=== PATIENT | female | born 1995 | race Caucasian/White ===

== ENCOUNTER → 2016-07-04 | Outpatient (REF) | payer OTHER | LOC: M SFHCLERA 15:33 | PROVIDERS: ATTEND Nurse Practitioner Family | DX: J02.9 Acute pharyngitis, unspecified (principal) ==

== ENCOUNTER → 2016-07-15 | Outpatient (REF) | payer OTHER ==
[2016-07-15 18:44] LABS: ALBUMIN 3.5 GM/DL (3.2-5.2); ALBUMIN/GLOBULIN RATIO 1.06 (1.00-1.93); ALKALINE PHOSPHATASE 71 U/L (45-117); ALT/SGPT 15 U/L (12-78); ANION GAP 8 MEQ/L (8-16); AST/SGOT 9 U/L (15-37); BILIRUBIN,TOTAL 0.2 MG/DL (0.2-1.0); BLOOD UREA NITROGEN 11 MG/DL (7-18); CARBON DIOXIDE LEVEL 27 MEQ/L (21-32); CHLORIDE LEVEL 107 MEQ/L (98-107); CREATININE FOR GFR 0.65 MG/DL (0.55-1.02); GLUCOSE, FASTING 72 MG/DL (70-105); HCG, SERUM QUANTITATIVE 22643 MIU/ML; SODIUM LEVEL 142 MEQ/L (136-145); TOTAL PROTEIN 6.8 GM/DL (6.4-8.2)
[2016-07-15 18:45] LABS: POTASSIUM SERUM 5.2 MEQ/L (3.5-5.1)
[2016-07-15 19:28] LABS: BASO % 0.3 % (0.0-1.0); EOS # 0.1 K/mm3 (0.0-0.50); EOS % 0.4 % (0.0-3.0); LARGE UNSTAINED CELL # 0.1 K/mm3 (0.0-0.4); LARGE UNSTAINED CELL % 0.8 % (0.0-4.0); LYMPH # 2.6 K/mm3 (1.5-6.5); LYMPH % 19.8 % (24.0-44.0); MEAN CORPUSCULAR HEMOGLOBIN 30.4 pg (27.0-33.0); MEAN CORPUSCULAR HGB CONC 32.7 g/dl (32.0-36.5); MEAN CORPUSCULAR VOLUME 92.9 fl (80.0-96.0); MONO # 0.4 K/mm3 (0.0-0.8); MONO % 3.3 % (0.0-5.0); NEUTROPHILS # 9.8 K/mm3 (1.8-7.7); NEUTROPHILS % 75.4 % (36.0-66.0); PLATELET COUNT, AUTOMATED 262 k/mm3 (150-450); RED CELL DISTRIBUTION WIDTH 12.5 % (11.5-14.5); WHITE BLOOD COUNT 12.9 K/mm3 (4.0-10.0)
[2016-07-19 08:06] LABS: CYTOMEGALOVIRUS IgG ANTIBODY <0.60 U/mL (0.00-0.59)
== END ==
LOC: M SFHCLERA 15:58
PROVIDERS: ATTEND Nurse Practitioner Family
DX: R10.12 Left upper quadrant pain (principal)

== ENCOUNTER → 2016-07-15 | Outpatient (CLI) | payer BC, OTHER ==
--- NOTE | 2016-07-15 16:44 | REP ---
Left upper quadrant sonography: History: Left upper quadrant pain. Question organomegaly. Findings: Scanning through the left upper quadrant of the abdomen demonstrates a normal sized homogeneous spleen with greatest dimension of 9.8 cm. There is no evidence of ascites. No mass or cyst is seen in the left upper quadrant. No left renal abnormality is seen. Left kidney measures 10.5 x 5.4 x 4.5 cm. Impression: Normal left upper quadrant sonography. Signed by Joesph Thompson MD 07/15/2016 04:59 P
== END ==
LOC: M LRY 14:56
PROVIDERS: ATTEND Nurse Practitioner Family
DX: R10.12 Left upper quadrant pain (principal); R07.81 Pleurodynia

== ENCOUNTER → 2016-08-29 | Outpatient (CLI) | payer BC, OTHER ==
--- NOTE | 2016-08-30 08:37 | REP ---
OBSTETRIC SONOGRAPHY: HISTORY: Supervision of , size/date discrepancy. FINDINGS: Scanning through the gravid uterus demonstrates a viable single intrauterine gestation in a breech lie. motion is observed and heart rate is recorded at 147 beats per minute. A posterior grade 0 placenta is seen without evidence of previa or abruption. Amniotic fluid is subjectively normal. Closed cervical length is 3.5 cm, viewed transabdominally. No extrauterine abnormality is observed. No anomaly is seen. The following anatomic structures are identified and felt to be sonographically unremarkable: cranium, choroid plexus, cavum, cerebellum and posterior fossa, face and profile, lungs, four-chamber heart with left and right ventricular outflow tract views, diaphragm, left-sided stomach, abdominal wall cord insertion, three-vessel umbilical cord, kidneys and bladder, spine, upper and lower extremities. Biometry Chart: BPD 5.1 cm = 21 weeks 3 days HC 19.5 cm = 21 weeks 5 days AC 17.0 cm = 22 weeks 0 days FL 3.5 cm = 21 weeks 0 days HL 3.5 cm = 22 weeks 0 days CD 2.3 cm = 21 weeks 1 day HC/AC ratio normal 1.15. Cephalic index normal 0.72. Estimated weight 433 grams, 0 pounds 15 ounces, 58th percentile for 21 weeks 2 days. IMPRESSION: Viable single intrauterine gestation at 21 weeks 2 days by today's composite sonographic criteria. MANA by today's sonography January 07, 2017. anatomic survey is felt to be complete. Signed by Joesph Thompson MD 08/30/2016 01:07 P
== END ==
LOC: M SMT 14:45
PROVIDERS: ATTEND Advanced Practice Midwife
DX: O26.842 Uterine size-date discrepancy, second trimester (principal)

== ENCOUNTER → 2016-10-13 | Outpatient (CLI) | payer BC, OTHER ==
[2016-10-13 18:06] LABS: MEAN CORPUSCULAR HEMOGLOBIN 32.1 pg (27.0-33.0); MEAN CORPUSCULAR HGB CONC 34.7 g/dl (32.0-36.5); MEAN CORPUSCULAR VOLUME 92.7 fl (80.0-96.0); RED CELL DISTRIBUTION WIDTH 12.1 % (11.5-14.5); WHITE BLOOD COUNT 9.6 K/mm3 (4.0-10.0)
== END ==
LOC: M SMT 13:30
PROVIDERS: ATTEND Advanced Practice Midwife
DX: Z34.82 Encounter for supervision of other normal pregnancy, second trimester (principal)

== ENCOUNTER → 2016-12-10 | Outpatient (REF) | payer OTHER | LOC: M SFHCLERA 13:31 | PROVIDERS: ATTEND Physician Assistant | DX: J02.0 Streptococcal pharyngitis (principal) ==

== ENCOUNTER → 2016-12-14 | Outpatient (REF) | payer OTHER ==
[~2016-12-14] MED LIST: ACET50TA PO; IBUP-1114 PO; PRENTAB9 PO
== END ==
LOC: M LAB REF 17:25
PROVIDERS: ATTEND Advanced Practice Midwife
DX: Z34.83 Encounter for supervision of other normal pregnancy, third trimester (principal)

== ENCOUNTER 2017-01-06 07:02 | Inpatient (IN) | payer BC, OTHER, MEDICAID ==
[2017-01-06] VITALS (16 sets, daily range): BP systolic 115–152; BP diastolic 56–98
[~2017-01-06] VITALS: Ht 172.7 cm; Wt 90.0 kg
[2017-01-06] MEDS ORDERED: PRENTAB9 PO (07:29)
[2017-01-06] MEDS ORDERED: PENICILLIN G POTASSIUM IV 5 MU in D5W MINI-BAG PLUS 100 ML IV STA (07:46)
[2017-01-06 08:16] LABS: MEAN CORPUSCULAR HEMOGLOBIN 31.9 pg (27.0-33.0); MEAN CORPUSCULAR HGB CONC 35.6 g/dl (32.0-36.5); MEAN CORPUSCULAR VOLUME 89.5 fl (80.0-96.0); RED CELL DISTRIBUTION WIDTH 12.6 % (11.5-14.5)
[2017-01-06] MEDS ORDERED: FENTANYL 2MCG/ML ROPIVACAINE 0.2% IN 0.9% NACL 200ML IVBAG As Ordered ONE (09:38)
[2017-01-06] MEDS ORDERED: TERBUTALINE SULFATE 1 MG/ML VIAL (J3105) As Ordered ONE (10:20)
[2017-01-06] MEDS ORDERED: TERBUTALINE SULFATE 1 MG/ML VIAL (J3105) SC ONE (11:15)
[2017-01-06] MEDS ORDERED: PENICILLIN G POTASSIUM IV 2.5 MU in D5W 100 ML IV SCH (14:00)
[2017-01-06] MEDS ORDERED: OXYTOCIN 30 UNITS IN 0.9% NaCl 500ML IV BAG (J2590) As Ordered ONE (15:36)
[2017-01-06] MEDS ORDERED: OXYTOCIN DRIP 30 UNITS in APPROPRIATE DILUENT 1 EA IV ONE (17:45)
[2017-01-06] MEDS ORDERED: MEASLES,MUMPS,RUBELLA VACCINE INJ (MMR-II) (90707) SC SCH (17:45)
[2017-01-06] MEDS ORDERED: RHOGAM 300 MCG (1500 IU) INJ (J2790) IM SCH (17:45)
[2017-01-06] MEDS ORDERED: METHYLERGONOVINE MALEATE 0.2 MG TAB PO PRN (17:45)
[2017-01-06] MEDS ORDERED: DOCUSATE SODIUM 100 MG CAP PO PRN (17:45)
[2017-01-06] MEDS ORDERED: IBUPROFEN 800 MG TAB PO PRN (17:45)
[2017-01-06] MEDS ORDERED: DIBUCAINE 1% OINTMENT 30GM TOP PRN (17:45)
[2017-01-06] MEDS ORDERED: ONDANSETRON 4MG/2ML VIAL (J2405) IV PRN (17:45)
[2017-01-06] MEDS ORDERED: ACETAMINOPHEN 500 MG TAB PO PRN (17:45)
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
[2017-01-07 05:48] VITALS: BP 140/82
[2017-01-07] MEDS: PRENATAL VITAMINS CHEWABLE TABLET PO SCH (09:00)
[2017-01-07 18:32] VITALS: BP 129/75
--- NOTE | 2017-01-08 03:43 | DN ---
DATE OF SERVICE: 01/06/2017 PREDELIVERY DIAGNOSES: 1. 39+ week gestation. 2. Labor. POSTDELIVERY DIAGNOSIS: Delivered. PROCEDURE: Spontaneous vaginal delivery. DEPOSITING MACHINE OPERATOR: Eros Dailey MD. ANESTHESIA: Epidural. ESTIMATED BLOOD LOSS: 300 mL. FINDINGS: 7 pound 12 ounce female infant, scores 9 and 9. DELIVERY SUMMARY: After a short second stage, the patient had spontaneous delivery of a 7 pound 12 ounce female , scores 9 and 9 under epidural anesthesia. There was no nuchal cord. The shoulders delivered with ease. The infant cried spontaneously and was handed to the mother. The cord was doubly clamped and cut. The placenta delivered spontaneously and appeared to be intact. Small first-degree vaginal laceration was noted, but did not require repair. The patient received intravenous (IV) Pitocin. Sponge counts were correct.
[2017-01-08 05:53] VITALS: BP 133/79
[2017-01-08] MEDS: PRENATAL VITAMINS CHEWABLE TABLET PO SCH (09:46)
[2017-01-08] MEDS ORDERED: IBUP-1114 PO (10:58)
[2017-01-08] MEDS ORDERED: ACET50TA PO (10:58)
== END 2017-01-08 17:40 | disposition home or self-care (01) | DRG 560 ==
LOC: M LDO 07:02 → M LDI 07:44 → M OBS 19:15
PROVIDERS: ADMIT Specialist; ATTEND Specialist
PROC: 10E0XZZ Delivery of Products of Conception, External Approach (ICD-10-PCS; principal; 2017-01-06)
DX: O70.0 First degree perineal laceration during delivery (principal); Z87.891 Personal history of nicotine dependence; Z37.0 Single live birth; Z3A.39 39 weeks gestation of pregnancy

== ENCOUNTER 2017-09-03 17:42 | Emergency (ER) | payer OTHER, BC, MEDICAID | END 2017-09-03 19:57 | disposition home or self-care (01) | LOC: M ED 17:42 | DX: S16.1XXA Strain of muscle, fascia and tendon at neck level, initial encounter (principal); T14.8XXA Other injury of unspecified body region, initial encounter; V49.49XA Driver injured in collision with other motor vehicles in traffic accident, initial encounter; Y92.410 Unspecified street and highway as the place of occurrence of the external cause | CPT/HCPCS: 73564 ==

== ENCOUNTER 2018-02-27 12:37 | Emergency (ER) | payer BC, OTHER, MEDICAID ==
[2018-02-27 13:25] LABS: HEMATOCRIT 37.3 % (36.0-47.0); HEMOGLOBIN 12.6 g/dl (12.0-15.5); MEAN CORPUSCULAR HGB CONC 33.8 g/dl (32.0-36.5); MEAN CORPUSCULAR VOLUME 91.9 fl (80.0-96.0); PLATELET COUNT, AUTOMATED 194 10^3/uL (150-450); RED BLOOD COUNT 4.06 10^6/uL (4.00-5.40); RED CELL DISTRIBUTION WIDTH 12.5 % (11.5-14.5); WHITE BLOOD COUNT 8.1 10^3/uL (4.0-10.0)
[2018-02-27] MEDS: NS 1,000 ML IV (13:30)
[2018-02-27 13:33] LABS: KETONE, URINE AUTO RFX TRACE mg/dL (NEGATIVE); MUCUS, URINE RFX SMALL (NEGATIVE); NITRITE, URINE AUTO RFX NEGATIVE (NEGATIVE); RBC, URINE AUTO RFX 1 /HPF (0-3); SPECIFIC GRAVITY UR AUTO RFX 1.024 (1.002-1.035); SQUAM EPITHELIAL CELL UR AURFX 12 /HPF (0-6); WBC, URINE AUTO RFX 3 /HPF (0-3)
[2018-02-27 13:34] LABS: LEUKOCYTE ESTERASE UR AUTO RFX TRACE (NEGATIVE)
[2018-02-27 13:58] LABS: ANION GAP 5 MEQ/L (8-16); BLOOD UREA NITROGEN 12 MG/DL (7-18); CARBON DIOXIDE LEVEL 28 MEQ/L (21-32); CHLORIDE LEVEL 106 MEQ/L (98-107); CREATININE FOR GFR 0.69 MG/DL (0.55-1.30); GLOMERULAR FILTRATION RATE > 60.0 (>60); GLUCOSE, FASTING 97 MG/DL (70-100); POTASSIUM SERUM 4.9 MEQ/L (3.5-5.1); SODIUM LEVEL 139 MEQ/L (136-145)
== END 2018-02-27 14:53 | disposition home or self-care (01) ==
LOC: M ED 12:37
DX: O99.89 Other specified diseases and conditions complicating pregnancy, childbirth and the puerperium (principal); R55 Syncope and collapse; R82.71 Bacteriuria; O99.511 Diseases of the respiratory system complicating pregnancy, first trimester; J45.909 Unspecified asthma, uncomplicated; Z87.891 Personal history of nicotine dependence; Z3A.12 12 weeks gestation of pregnancy
CPT/HCPCS: 93005

== ENCOUNTER → 2018-03-12 | Outpatient (CLI) | payer BC, OTHER ==
[2018-03-12 14:17] LABS: BASO % 0.3 % (0.0-1.0); EOS # 0.1 10^3/uL (0.0-0.50); EOS % 0.6 % (0.0-3.0); HEMATOCRIT 34.8 % (36.0-47.0); HEMOGLOBIN 11.6 g/dl (12.0-15.5); IMMATURE GRANULOCYTE % 0.3 % (0-3.0); LYMPH # 1.9 10^3/uL (1.5-6.5); LYMPH % 21.9 % (24.0-44.0); MEAN CORPUSCULAR HEMOGLOBIN 30.3 pg (27.0-33.0); MEAN CORPUSCULAR HGB CONC 33.3 g/dl (32.0-36.5); MEAN CORPUSCULAR VOLUME 90.9 fl (80.0-96.0); MONO # 0.5 10^3/uL (0.0-0.8); MONO % 5.5 % (0.0-5.0); NEUTROPHILS # 6.2 10^3/uL (1.8-7.7); NEUTROPHILS % 71.4 % (36.0-66.0); PLATELET COUNT, AUTOMATED 214 10^3/uL (150-450); RED BLOOD COUNT 3.83 10^6/uL (4.00-5.40); RED CELL DISTRIBUTION WIDTH 12.7 % (11.5-14.5); WHITE BLOOD COUNT 8.8 10^3/uL (4.0-10.0)
[2018-03-12 15:07] LABS: HBsAg Prenatal NEGATIVE (NEGATIVE); HIV 1&2 SCREEN CENTAUR NEGATIVE (NEGATIVE); RUBELLA IgG QUALITATIVE IMMUNE (IMMUNE)
[2018-03-12 15:07] LABS: HEPATITIS C VIRUS ABY INDEX 0.1 INDEX (<0.8)
[2018-03-12 15:16] LABS: CHLAMYDIA DNA AMPLIFICATION NEGATIVE (NEGATIVE); GC DNA AMPLIFICATION NEGATIVE (NEGATIVE)
== END ==
LOC: M SMT 10:41
DX: Z34.81 Encounter for supervision of other normal pregnancy, first trimester (principal); Z3A.08 8 weeks gestation of pregnancy
CPT/HCPCS: 86762

== ENCOUNTER → 2018-04-09 | Outpatient (CLI) | payer BC, OTHER, MEDICAID | LOC: M LRY 14:05 | DX: Z34.82 Encounter for supervision of other normal pregnancy, second trimester (principal); Z3A.18 18 weeks gestation of pregnancy | CPT/HCPCS: 76811 ==

== ENCOUNTER → 2018-04-26 | Outpatient (CLI) | payer BC, OTHER | LOC: M SMT 13:26 | DX: Z36.89 Encounter for other specified antenatal screening (principal); Z3A.20 20 weeks gestation of pregnancy | CPT/HCPCS: 76816 ==

== ENCOUNTER → 2018-05-28 | Outpatient (CLI) | payer BC, OTHER ==
[2018-05-28 18:32] LABS: ALT/SGPT 10 U/L (12-78); AST/SGOT 9 U/L (7-37); BILIRUBIN,TOTAL 0.2 MG/DL (0.2-1.0); CREATININE FOR GFR 0.65 MG/DL (0.55-1.30); GLOMERULAR FILTRATION RATE > 60.0 (>60); LDH LACTATE DEHYDROGENASE 118 U/L (84-246); URIC ACID 4.4 MG/DL (2.6-6.0)
[2018-05-28 18:33] LABS: HEMATOCRIT 37.3 % (36.0-47.0); HEMOGLOBIN 12.3 g/dl (12.0-15.5); MEAN CORPUSCULAR HEMOGLOBIN 31.1 pg (27.0-33.0); MEAN CORPUSCULAR VOLUME 94.4 fl (80.0-96.0); PLATELET COUNT, AUTOMATED 207 10^3/uL (150-450); RED BLOOD COUNT 3.95 10^6/uL (4.00-5.40); RED CELL DISTRIBUTION WIDTH 12.9 % (11.5-14.5)
[2018-05-28 19:11] LABS: TOTAL PROTEIN,RANDOM URINE 27.8 MG/DL (0.0-12.0)
== END ==
LOC: M SMT 11:39
DX: Z36.89 Encounter for other specified antenatal screening (principal)
CPT/HCPCS: 84460

== ENCOUNTER → 2018-07-09 | Outpatient (CLI) | payer BC, OTHER ==
[~2018-07-09] MED LIST changes: -ACET50TA PO; +CYCL10TA PO; +IBUP-1022 PO; +KEFL500C17 PO; +MAPA500T2 PO
[2018-07-09 17:31] LABS: HEMATOCRIT 35.9 % (36.0-47.0); HEMOGLOBIN 12.2 g/dl (12.0-15.5); MEAN CORPUSCULAR HEMOGLOBIN 31.4 pg (27.0-33.0); MEAN CORPUSCULAR VOLUME 92.5 fl (80.0-96.0); PLATELET COUNT, AUTOMATED 200 10^3/uL (150-450); RED BLOOD COUNT 3.88 10^6/uL (4.00-5.40); WHITE BLOOD COUNT 11.5 10^3/uL (4.0-10.0)
== END ==
LOC: M SMT 13:32
PROVIDERS: ATTEND Advanced Practice Midwife
DX: Z34.83 Encounter for supervision of other normal pregnancy, third trimester (principal)

== ENCOUNTER → 2018-07-30 | Outpatient (CLI) | payer BC, OTHER | LOC: M LAB 07:38 | PROVIDERS: ATTEND Advanced Practice Midwife | DX: Z34.83 Encounter for supervision of other normal pregnancy, third trimester (principal) ==

== ENCOUNTER → 2018-08-07 | Outpatient (REF) | payer OTHER | LOC: M LAB REF 17:07 | PROVIDERS: ATTEND Advanced Practice Midwife | DX: O13.3 Gestational [pregnancy-induced] hypertension without significant proteinuria, third trimester (principal); Z3A.00 Weeks of gestation of pregnancy not specified ==

== ENCOUNTER → 2018-08-09 | Outpatient (CLI) | payer BC, OTHER ==
--- NOTE | 2018-08-10 09:18 | REP ---
Clinical: Growth evaluation. Comparison: 04/26/2018 . Findings: Examination demonstrates a single live intrauterine in cephalic presentation. motion is identified by technologist. Placenta is noted fundal and grade grade II without evidence for placenta previa or abruption. Amniotic fluid volume is normal. Cervix measures 2.9 cm in length and appears closed. No evidence for nuchal cord. Gestational age by LMP 35 weeks 4 day with MANA 09/09/2018 . Gestational age by current measurements 35 weeks 3 days with MANA 09/10/2018 . FHR equals 122 beats per minute. BPD 8.8 cm 35 weeks 4 days HC 32.5 cm 36 weeks 6 days AC 38.9 cm 34 weeks 6 days FL 6.8 cm 35 weeks 0 days HL 6.0 cm 34 weeks 5 days HC/AC ratio 1.05 Estimated weight 2605 grams ( 42nd percentile). Amniotic fluid index: 15.2 cm Umbilical cord SD ratio: 2.92 Impression: Single live intrauterine in cephalic presentation demonstrating appropriate interval growth. Electronically Signed by Toño May MD 08/10/2018 09:09 A
== END ==
LOC: M RAD 11:17
PROVIDERS: ATTEND Advanced Practice Midwife
DX: O13.3 Gestational [pregnancy-induced] hypertension without significant proteinuria, third trimester (principal)

== ENCOUNTER 2018-08-19 06:09 | Inpatient (IN) | payer BC, OTHER ==
[2018-08-19] VITALS (20 sets, daily range): BP systolic 101–140; BP diastolic 59–102
[~2018-08-19] VITALS: Ht 172.7 cm; Wt 101.8 kg
[2018-08-19 07:35] LABS: HEMATOCRIT 36.5 % (36.0-47.0); HEMOGLOBIN 12.1 g/dl (12.0-15.5); MEAN CORPUSCULAR HEMOGLOBIN 30.1 pg (27.0-33.0); MEAN CORPUSCULAR HGB CONC 33.2 g/dl (32.0-36.5); MEAN CORPUSCULAR VOLUME 90.8 fl (80.0-96.0); PLATELET COUNT, AUTOMATED 237 10^3/uL (150-450); RED BLOOD COUNT 4.02 10^6/uL (4.00-5.40); WHITE BLOOD COUNT 11.4 10^3/uL (4.0-10.0)
[2018-08-19 07:41] LABS: ALT/SGPT 11 U/L (12-78); BILIRUBIN,TOTAL 0.3 MG/DL (0.2-1.0); CREATININE FOR GFR 0.76 MG/DL (0.55-1.30); GLOMERULAR FILTRATION RATE > 60.0 (>60); LDH LACTATE DEHYDROGENASE 100 U/L (84-246); URIC ACID 6.5 MG/DL (2.6-6.0)
[2018-08-19] MEDS: miSOPROStol 50 MCG 1/2 TAB (S0191) PO SCH ×2 (07:44→11:45)
--- NOTE | 2018-08-19 11:03 | HPE ---
DATE OF ADMISSION: 08/19/2018 REASON FOR ADMISSION: Induction of labor. HISTORY OF PRESENT ILLNESS: This patient is a 22-year-old, 2, para 1, who presents at 37 weeks 4 days estimated gestational age by a last menstrual period confirmed by a first trimester ultrasound here for induction of labor for gestational hypertension. Her course again has been remarkable for gestational hypertension. She initiated care in the first trimester and has been appropriate throughout the . PAST MEDICAL HISTORY: None. PAST SURGICAL HISTORY: She has had tonsillectomy and adenoidectomy. OBSTETRICAL HISTORY: She is 2, para 1. She has had 1 term vaginal delivery. She is proven 6 pounds and 12 ounces. MEDICATIONS: vitamins. ALLERGIES: She has no known drug allergies. SOCIAL HISTORY: Denies any alcohol, tobacco or drug use during the . PHYSICAL EXAMINATION: Vital signs are stable. She is afebrile. She has a Category 1 rate tracing. General Appearance: Well appearing in no acute distress. Her lungs are clear to auscultation bilaterally. Cardiovascular: Heart regular rate and rhythm. Abdomen is gravid, nontender. Estimated weight (EFW) 3000 grams. Cervical Exam: Her cervix is long and closed. LABS: Blood type is O+. Antibody screen is negative. Rubella is immune. RPR is nonreactive. Hepatitis surface antigen negative. HIV is negative. Hepatitis C is nonreactive. Chlamydia and gonorrhea screens are negative. She had an elevated 1-hour Glucola with normal 3-hour glucose tolerance test. She is GBS negative. ASSESSMENT: 1. This patient is a 22-year-old, 2, para 1, at 37 and 4 weeks, here for induction of labor for gestational hypertension, currently stable. 2. Reassuring status. PLAN: 1. Admit to Labor delivery. CBC, RPR, type and screen. 2. I discussed medication as well as procedures performed in labor and delivery. We reviewed induction. I also verbally consented her for emergency surgery, blood products and anesthesia. She desires to proceed with induction of labor. Will initiate her induction with oral misoprostol.
[2018-08-19] MEDS: CALCIUM CARBONATE 500 MG CHEW U/D PO PRN ×2 (11:58→21:04)
--- NOTE | 2018-08-19 16:34 | NUR ---
L&D Note: S: Coping well w/ labor pain O: vss, AF cat I tracing cx: /-3, AROM clear A/P: 22yo IOL for GHTN- stable reassuring status -epidural at request -anticipate ANGELICA Sierra MD
[2018-08-19] MEDS ORDERED: FENTANYL 2MCG/ML ROPIVACAINE 0.2% IN 0.9% NACL 100ML IVBAG As Ordered ONE (16:38)
[2018-08-19] MEDS ORDERED: OXYTOCIN 30 UNITS IN 0.9% NaCl 500ML IV BAG (J2590) As Ordered ONE (18:41)
[2018-08-19] MEDS ORDERED: NALOXONE INJ 0.4 MG/1 ML VIAL (J2310) IV PRN (18:45)
[2018-08-19] MEDS ORDERED: REFRIGERATOR IV KEYS XX PRN (18:45)
[2018-08-19] MEDS ORDERED: EPIDURAL/PCA KEYS XX PRN (18:45)
[2018-08-19] MEDS ORDERED: diphenhydrAMINE INJ 50MG/ML VIAL (J1200) IV PRN (18:45)
[2018-08-19] MEDS ORDERED: EPIDURAL COMMENT XX SCH (18:45)
[2018-08-19] MEDS ORDERED: ONDANSETRON 4MG/2ML VIAL (J2405) IV PRN (18:45)
[2018-08-19] MEDS ORDERED: FENTANYL/ROPIVACAINE/NACL BAG 100 ML EPIDURAL SCH (18:45)
[2018-08-19] MEDS ORDERED: LR 1,000 ML IV SCH (20:46)
[2018-08-19] MEDS ORDERED: OXYTOCIN DRIP 30 UNITS in APPROPRIATE DILUENT 1 EA IV SCH ×2 (21:00→22:57)
[2018-08-19] MEDS ORDERED: RHOGAM 300 MCG (1500 IU) INJ (J2790) IM SCH (23:00)
[2018-08-19] MEDS ORDERED: MEASLES,MUMPS,RUBELLA VACCINE INJ (MMR-II) (90707) SC SCH (23:00)
[2018-08-19] MEDS ORDERED: MOM 30ML SUSPENSION UDC PO PRN (23:00)
[2018-08-19] MEDS ORDERED: ACETAMINOPHEN 500 MG TAB PO PRN (23:00)
[2018-08-19] MEDS ORDERED: METHYLERGONOVINE MALEATE 0.2 MG TAB PO PRN (23:00)
[2018-08-19] MEDS ORDERED: DIBUCAINE 1% OINTMENT 30GM TOP PRN (23:00)
[2018-08-19] MEDS ORDERED: ANUSOL HC CREAM 30GM TOP PRN (23:00)
[2018-08-19] MEDS ORDERED: DOCUSATE SODIUM 100 MG CAP PO PRN (23:00)
[2018-08-20 01:10] VITALS: BP 121/74
[2018-08-20] MEDS: IBUPROFEN 800 MG TAB PO PRN ×2 (02:53→14:53)
--- NOTE | 2018-08-20 07:09 | NUR ---
PPD#1 S: Doing well w/o complaints. +ambulation, +voids, pain well controlled. O: vss, AF gen: well appearing abd: soft,nttp, ff@u-1 ext: neg calf tenderness A/P: PPD#1 s/p - recovering in stable condition -cont routine care -d/c plans for tomorrow Nelli Sierra MD
--- NOTE | 2018-08-20 07:45 | DN ---
DATE OF DELIVERY: 08/19/2018 TIME OF : 2219 GENDER: Male SCORES: 8 and 9. WEIGHT: 6 pounds 11 ounces or 3020 grams. LACERATIONS: None. ESTIMATED BLOOD LOSS: 300 mL. ANESTHESIA: Epidural. COUNTS: Five laparotomy sponges accounted for prior to and after delivery. DELIVERY NOTE: On the August at 2219, Ms. Stevenson, a 22-year-old, 2 now para 2 had a spontaneous vaginal delivery of a live born male infant, scores 8 and 9, weight was 6 pounds 11 ounces or 3020 grams. Head was delivered occipitoanterior (OA) over intact perineum following shoulders and corpus. Infant was handed to the mom with a good cry. Cord was clamped times two and was cut by the father of the baby under my direction. Placenta was then drained delivered grossly intact. A premixed bag of 500 mL of normal saline was then bolused along with uterine massage until uterus firm. On inspection cervix, vagina, and perineum was grossly intact and hemostatic. Mom and baby recovered in stable condition. The couple decided to name their son, Georges.
[2018-08-20] MEDS: PRENATAL VITAMINS CHEWABLE TABLET PO SCH (08:30)
[2018-08-20 18:00] VITALS: BP 123/73
[2018-08-21 00:10] VITALS: BP 119/70
[2018-08-21 06:11] VITALS: BP 110/63
[2018-08-21] MEDS: PRENATAL VITAMINS CHEWABLE TABLET PO SCH (09:10)
[2018-08-21] MEDS ORDERED: MAPA500T2 PO (10:00)
[2018-08-21] MEDS ORDERED: PRENTAB9 PO (10:00)
[2018-08-21] MEDS ORDERED: IBUP200C25 PO (10:00)
== END 2018-08-21 14:05 | disposition home or self-care (01) | DRG 560 ==
LOC: M LDI 06:09 → M OBS 08-20 01:07
PROVIDERS: ADMIT Obstetrics & Gynecology; ATTEND Obstetrics & Gynecology
PROC: 10E0XZZ Delivery of Products of Conception, External Approach (ICD-10-PCS; principal; 2018-08-19)
PROC: 3E0P7GC Introduction of Other Therapeutic Substance into Female Reproductive, Via Natural or Artificial Opening (ICD-10-PCS; 2018-08-19)
DX: O13.4 Gestational [pregnancy-induced] hypertension without significant proteinuria, complicating childbirth (principal); Z3A.37 37 weeks gestation of pregnancy; Z37.0 Single live birth

== ENCOUNTER → 2019-12-16 | Outpatient (CLI) | payer BC, OTHER ==
[~2019-12-16] MED LIST changes: +CYCL-707 PO; -CYCL10TA PO; +IBUP200C25 PO
--- NOTE | 2019-12-16 16:34 | REP ---
Right knee series: Five views. History: Popping sounds. Right knee pain. Findings: Five views of the right knee demonstrate normal bones, joints and soft tissues. No fracture subluxation or joint effusion. No significant change from prior study of April 23, 2014. Impression: Negative right knee radiographs. Electronically Signed by Joesph Thompson MD 12/16/2019 04:25 P
== END ==
LOC: M LRY 15:58
PROVIDERS: ATTEND Nurse Practitioner Family
DX: M25.561 Pain in right knee (principal)

== ENCOUNTER → 2020-08-28 | Outpatient (CLI) | payer BC | LOC: M LABSMTC 09:40 | PROVIDERS: ATTEND Anesthesiology | DX: Z01.812 Encounter for preprocedural laboratory examination (principal); Z20.822 Contact with and (suspected) exposure to COVID-19 ==

== ENCOUNTER 2020-09-02 08:57 | Day surgery (SDC) | payer BC, OTHER ==
[~2020-09-02] VITALS: Ht 172.7 cm; Wt 88.0 kg
[~2020-09-02 08:57] MED LIST changes: +LR 1,000 ML IV ONE; +ceFAZolin SOD 2 GM in IV 1 EA IV ONE
[2020-09-02] MEDS ORDERED: MIDAZOLAM INJ 2MG/2ML VIAL (J2250 PER 1MG) As Ordered ONE (12:42)
[2020-09-02] MEDS ORDERED: ROCURONIUM BROMIDE 50 MG/5 ML VIAL As Ordered ONE (12:42)
[2020-09-02] MEDS ORDERED: propofoL 200 MG/20 ML VIAL As Ordered ONE (12:42)
[2020-09-02] MEDS ORDERED: LIDOCAINE 2% 100MG/5ML SDV (FOR ANES.) As Ordered ONE (12:42)
[2020-09-02] MEDS ORDERED: fentaNYL 100 MCG/2 ML INJECTION (J3010) As Ordered ONE (12:42)
[2020-09-02] MEDS ORDERED: BUPIVACAINE HCL 0.25% 30ML VIAL As Ordered ONE (13:00)
[2020-09-02] MEDS ORDERED: ONDANSETRON 4MG/2ML VIAL As Ordered ONE (13:44)
[2020-09-02] MEDS ORDERED: dexameTHASONE 4 MG/ML 1ML VIAL (J1100 PER 1MG) As Ordered ONE (13:44)
[2020-09-02] MEDS ORDERED: KETOROLAC 60MG 2ML VIAL As Ordered ONE (13:44)
--- NOTE | 2020-09-02 14:20 | ROOPDOC ---
[facility] Report Of Operation Report of Operation DATE OF PROCEDURE: 09/02/20 PREPROCEDURE DIAGNOSES: Right knee lateral meniscus tear and lateral femoral cartilage lesion. POSTPROCEDURE DIAGNOSES: Same. PROCEDURE: Right knee arthroscopy, partial lateral meniscectomy and lateral meniscus repair as well as debridement cartilage lesion lateral femoral condyle 5 x 5 mm. SURGEON: Dr. Marin Villalobos MD LEAK PATCHER: None ANESTHESIA: Gen. anesthetic Dr Alvarez. ESTIMATED BLOOD LOSS: Approximately 20 mL. COMPLICATIONS: None. REMARKS: None. PROCEDURE NOTE: This 24-year-old female had signs and symptoms of lateral knee pain as well as MRI evidence of bucket-handle lateral meniscus tear as well as small osteochondral defect lateral femoral condyle. She wished to proceed with surgery. Marked the right knee and she had no further questions.. DESCRIPTION OF PROCEDURE: Patient was brought to the operating theater. There placed supine on the operating room table. General anesthesia was induced. 2 g of IV Ancef was administered prior to the start of the case. Stress positioner was used to the patient's right side. Tourniquet was applied to the right thigh and appropriately padded. Right lower extremity was prepped and draped in the [facility] sterile fashion allowing over 3 minutes chlorhexidine-based prep solution drying time prior to draping. Preoperative timeout was performed to confirm the site the patient and the surgery. I began by elevating the limb and inflating the tourniquet to 250 mmHg. Standard anterolateral and anteromedial arthroscopy portals. I performed a thorough diagnostic arthroscopy. Patellofemoral cartilage appeared normal. No loose bodies. Medial and lateral gutters were entered. No abnormalities. ACL and PCL appeared normal. Cartilage as well as meniscus on the . medial compartment was normal and stable and solid to probing. I then turned my tension lateral compartment. There is no obvious bucket-handle tear. It had in fact 2 longitudinal tears in the inner 1/3-2/3 area. I reduced the meniscus. I made an assessment whether this was repairable. It did look chronic and had multiple longitudinal tears. As such I removed the inner 1/3-2/3 of the meniscus attempting to save as much of the meniscus tissue as I could. In the mid body of the lateral meniscus there is near complete radial tear with approximately 80% of the medial to lateral surface of the mid body of the meniscus torn and having to be removed. The anterior and posterior horns and roots did appear to be stable to probing. The tear did extend to the superior aspect of the posterior root and this was debrided however the root appeared to not have any sort of tears or lifting up. The remaining meniscal tissue in the mid body to near the popliteal hiatus was very unstable. As such I had to do a [id number] repair as well as repair this directly to the popliteus tendon otherwise this would have an unstable and a complete radial tear with gross instability for a large area. I performed gentle debridement of this area just outside the meniscus. I performed an accessory high anterior medial portal in order to access the tear properly. I used the Arthrex all suture all inside 2-0 FiberWire suture meniscal repair devices. I used 2 of these. I did a [id number] repair at the area of the near complete radial tear as well as a horizontal mattress to secure the remaining meniscal tissue to the popliteus tendon ensuring no deep penetration in that area. Repair felt stable with probing. Arthroscopy pictures were taken and saved throughout the case onto the system. Knee was thoroughly irrigated followed by using 10 mL of Marcaine local anesthetic at the portal sites. Wounds were cleaned and Steri-Strips applied followed by Adaptic 4 x 8 gauze EBD dressing and overwrapped with 6 inch Pierre bandage. Patient's knee was placed into knee immobilizer in full extension. Tourniquet was let down prior to end of the case. Patient was woken up from the general anesthetic transferred off the operating room table and taken to postanesthetic care unit in stable condition. All sponge, needle, instrument counts are correct. No complications. Plan for the patient is to be nonweightbearing 6 weeks time start passive range of motion 0-90 only. I will see in the office in 2 weeks and we will get them into a hinged knee brace and immediate physical therapy for the passive range of motion. Prescription has been sent in to the pharmacy electronically. Risk factors for harms from taking opioid medications discussed and assessed including but not limited to personal or family history of substance use disorder, anxiety or depression, , age 65 or older, COPD or other unde rlying respiratory conditions, and renal or hepatic insufficiency. Discussed with patient concerns and determined any harms they may experience or be currently experiencing such as nausea or constipation, feeling sedated or confused, breathing interruptions during sleep, or taking or craving more opioids than prescribed or difficulty controlling use (addiction). Discussed early warning signs of overdose including confusion, sedation, slurred speech, abnormal gait. Postoperative wound instructions were given. It was recommended to keep the wound clean and dry. Dressing changes as needed. It was reinforced with the patient that they should call us or be seen immediately for redness, drainage, or fever. MARIN VILLALOBOS MD Sep 02, 2020 14:20
[2020-09-02] MEDS ORDERED: MORPHINE 2 MG/ML 1ML VIAL (J2270) IV PRN (14:25)
[2020-09-02] MEDS ORDERED: PERCOCET 5MG/325MG TAB PO PRN (14:25)
[2020-09-02] MEDS ORDERED: oxyCODONE 5MG TAB PO PRN (14:25)
[2020-09-02] MEDS ORDERED: ONDANSETRON 4MG/2ML VIAL IV PRN ×2 (14:25)
[2020-09-02] MEDS ORDERED: LR 1,000 ML IV SCH ×2 (14:25)
[2020-09-02] MEDS ORDERED: ACETAMINOPHEN TAB 650MG DOSE (2X325MG) PO PRN (14:25)
[2020-09-02] MEDS: fentaNYL 100 MCG/2 ML INJECTION (J3010) IV PRN ×4 (14:30→14:51)
[2020-09-02 15:50] VITALS: BP 115/58
== END 2020-09-02 16:35 | disposition home or self-care (01) ==
LOC: M SDC 08:57
PROVIDERS: ATTEND Orthopaedic Surgery Sports Medicine
DX: S83.251A Bucket-handle tear of lateral meniscus, current injury, right knee, initial encounter (principal); X58.XXXA Exposure to other specified factors, initial encounter; Y92.89 Other specified places as the place of occurrence of the external cause; Y93.9 Activity, unspecified; Y99.9 Unspecified external cause status; M94.261 Chondromalacia, right knee; J45.909 Unspecified asthma, uncomplicated; F17.218 Nicotine dependence, cigarettes, with other nicotine-induced disorders
CPT/HCPCS: 29882; 97116; C1713; J0690; J1100; J1885; J2250; J2405; J3010

== ENCOUNTER → 2021-08-04 | Outpatient (REF) | payer MEDICAID, OTHER ==
[~2021-08-04] MED LIST changes: -LR 1,000 ML IV ONE; -ceFAZolin SOD 2 GM in IV 1 EA IV ONE
[2021-08-04 18:59] LABS: GC DNA AMPLIFICATION NEGATIVE (NEGATIVE)
== END ==
LOC: M SFHCWAGY 16:40
PROVIDERS: ATTEND Obstetrics & Gynecology
DX: Z11.3 Encounter for screening for infections with a predominantly sexual mode of transmission (principal)

== ENCOUNTER → 2021-08-04 | Outpatient (CLI) | payer MEDICAID, OTHER ==
[2021-08-04 18:43] LABS: HEPATITIS B CORE ANTIBODY IGM NEGATIVE (NEGATIVE); HEPATITIS B SURFACE ANTIGEN NEGATIVE (NEGATIVE); HEPATITIS C VIRUS ABY INDEX 0.1 INDEX (<0.8); HIV 1&2 SCREEN CENTAUR NEGATIVE (NEGATIVE)
== END ==
LOC: M PLALAB 15:15
PROVIDERS: ATTEND Obstetrics & Gynecology
DX: Z11.4 Encounter for screening for human immunodeficiency virus [HIV] (principal); Z11.3 Encounter for screening for infections with a predominantly sexual mode of transmission

== ENCOUNTER → 2025-01-03 | Outpatient (CLI) | payer BC, OTHER | LOC: M WUC 10:23 | PROVIDERS: ATTEND Physician Assistant | DX: S80.01XA Contusion of right knee, initial encounter (principal); W01.118A Fall on same level from slipping, tripping and stumbling with subsequent striking against other sharp object, initial encounter; Y92.9 Unspecified place or not applicable; Y93.9 Activity, unspecified; Y99.9 Unspecified external cause status ==

== ENCOUNTER → 2025-02-20 | Outpatient (CLI) | payer BC, MEDICAID ==
[~2025-02-20] MED LIST changes: -IBUP-1022 PO; +IBUP600T42 PO
[2025-02-25 17:47] LABS: LYME TOTAL ANTIBODY CIA <= 0.90 Index (<=0.90)
[2025-02-26 15:38] LABS: BORRELIA SPECIES DNA NOT DETECTED (NOT DETECT)
== END ==
LOC: M WUC 11:40
PROVIDERS: ATTEND Nurse Practitioner Family
DX: R21 Rash and other nonspecific skin eruption (principal)